=== PATIENT | female | born 1995 | race Caucasian/White ===

== ENCOUNTER 2017-10-23 19:26 | Emergency (ER) | payer OTHER ==
[~2017-10-23] VITALS: Ht 165.1 cm; Wt 56.7 kg
--- OUTSIDE RECORDS SUMMARY | 2017-10-23 19:34 | XMS REPORT ---
Author Author NIKKY SINGH Organization [facility] Address [address] [place] [address] Care Team Providers Care Condominium [employer] Manager Name Role Phone NIKKY SINGH Unavailable PROBLEMS No Known Problems ALLERGIES No Known Allergies ENCOUNTERS Encounter Location Date Diagnosis [facility] [id number] [place] [phone] August, Encounter for Depo-Provera contraception Z30.42 [facility] [address] [place] [phone] August, Cough R05 and Viral upper respiratory tract infection J06.9 [facility] [address] [place] [phone] Jun, control counseling Z30.09 and Encounter for Depo- Provera contraception Z30.42 IMMUNIZATIONS Vaccine Route Administration Date Status DEPO PROVERA (150 MG/ML) IM Intramuscular June 08, 2017 Administered SOCIAL HISTORY Never Assessed REASON FOR VISIT control consult, would like counseling on the mirena, and would like to continue her sprintec in the meantime-[facility] PLAN OF CARE Activity Details Follow Up 3 Months, prn Reason:Depo VITAL SIGNS Height 65 in 2017-06-08 Weight 126.4 lbs 2017-06-08 Temperature 99.3 degrees Fahrenheit 2017-06-08 Heart Rate 78 bpm 2017-06-08 Respiratory Rate 20 2017-06-08 BMI 21.03 kg/m2 2017-06-08 Blood pressure systolic 122 mmHg 2017-06-08 Blood pressure diastolic 62 mmHg 2017-06-08 MEDICATIONS Medication Instructions Dosage Frequency Start Date End Date Duration Status Depo-Provera 150 MG/ML Intramuscular once every 3 months 1 ml Jun, 1 dose Active Sprintec 28 0.25-35 MG-MCG Orally Once a day 1 tablet 24h Active RESULTS Name Result Date Reference Range TEST, URINE (IN HOUSE) 2017-06-08 RESULTS Negative Lot # [id number] Control + Exp date 11/01/18 PROCEDURES Procedure Date Ordered Result Body Site URINE TEST June 08, 2017 THER/PROPH/DIAG INJ, SC/IM June 08, 2017 DEPO PROVERA (150 MG/ML) June 08, 2017 INSTRUCTIONS MEDICATIONS ADMINISTERED No Known Medications
--- OUTSIDE RECORDS SUMMARY | 2017-10-23 19:35 | XMS REPORT | Clinical Summary ---
Author Author Admin, SHEA Organization [facility] Address Unknown Phone Allergies, Adverse Reactions, Alerts Allergy Name Reaction Description Start Date Severity Status Provider No Known Allergies Trena Qiu LPN Conditions or Problems Problem Name Problem Code Onset Date Status Entry Date Provider Comment Standard Description Annotate FAMILY HISTORY OF CORONARY HEART DISEASE V17.3 Active Madison Brantley MD Family history of ischemic heart disease SINUSITIS, ACUTE 461.9 Resolved Madison Brantley MD Acute sinusitis, unspecified CONCUSSION 850.9 Resolved Madison Brantley MD Concussion, unspecified WELL CHILD EXAM V20.2 Inactive Madison Brantley MD Routine infant or child health check Shellfish allergy 988.0 Active Madison Brantley MD Toxic effect of fish and shellfish eaten as food Delayed menses 626.8 Active Madison Brantley MD Other disorders of menstruation and other abnormal bleeding from female genital tract Urticaria, 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 Active Karen Faux Allergic urticaria SINUSITIS, ACUTE ICD-461.9 Inactive Madison Brantley MD CONCUSSION ICD-850.9 Inactive Madison Brantley MD WELL CHILD EXAM ICD-V20.2 Inactive Madison Brantley MD Medication List Medication Instructions Start Date Stop Date Generic Name NDC Status Provider Patient Instruction EPIPEN JR 2-BLADE 0.15 MG/0.3ML MAUREEN use as directed EPINEPHRINE 32107958093 Active Madison Brantley MD Active FLUTICASONE PROPIONATE 50 MCG/ACT SUSP 1 puff bid for 3-5 days, then daily FLUTICASONE PROPIONATE [id number] No Longer Active Madison Brantley MD Active AMOXICILLIN 500 MG CAPS 1 bid AMOXICILLIN [id number] No Longer Active Madison Brnatley MD Active AMOXICILLIN 500 MG CAPS 1 bid AMOXICILLIN 500 MG CAPS 112308 AMOXICILLIN Inactive FLUTICASONE PROPIONATE 50 MCG/ACT SUSP 1 puff bid for 3-5 days, then daily FLUTICASONE PROPIONATE 50 MCG/ACT SUSP 803815 FLUTICASONE PROPIONATE Inactive Immunizations Vaccine Administration Date Value Standard Description Hepatitis A vaccine, ped/adol, 2 dose (Havrix 2 dose ped/adol, Vaqta ped/adol) , #2 Vaqta (2 dose - Ped/Adol) [CVX83] hepatitis A vaccine, pediatric/adolescent dosage, 2 dose schedule Combined Nypqnxfxdy-Wshwbyd-phbpvpepl Pertussis (dTpa) Vaccine - Booster 10/12 Boostrix [[id number]] tetanus toxoid, reduced diphtheria toxoid, and acellular pertussis vaccine, adsorbed chicken pox immunization #2 Varicella Vax varicella virus vaccine MPSV4 (meningococcal polysaccharide vaccination) Menactra meningococcal polysaccharide vaccine (MPSV4) hepatitis A immunization #1 Historical hepatitis A vaccine, unspecified formulation dT (Diphtheria and Tetanus) booster TD Td(adult) unspecified formulation DPT immunization #5 DTaP polio vaccine #4 IPV poliovirus vaccine, inactivated MMR virus immunization #2 MMR DPT immunization #4 DTaP Hemophilus influenza B immunization #4 Historical Haemophilus influenzae type b vaccine, conjugate unspecified formulation polio vaccine #1 IPV poliovirus vaccine, inactivated polio vaccine #2 OPV poliovirus vaccine, inactivated MMR virus immunization #1 MMR chicken pox immunization #1 Varicella Vax varicella virus vaccine hepatitis B vaccine #3 Historical hepatitis B vaccine, unspecified formulation DPT immunization #3 DTaP Hemophilus influenza B immunization #3 Historical Haemophilus influenzae type b vaccine, conjugate unspecified formulation DPT immunization #2 DTaP Hemophilus influenza B immunization #2 Historical Haemophilus influenzae type b vaccine, conjugate unspecified formulation polio vaccine #3 IPV poliovirus vaccine, inactivated hepatitis B vaccine #2 Historical hepatitis B vaccine, unspecified formulation DPT immunization #1 DTaP Hemophilus influenza B immunization #1 Historical Haemophilus influenzae type b vaccine, conjugate unspecified formulation hepatitis B vaccine #1 Historical hepatitis B vaccine, unspecified formulation Vital Signs Date Name Value Unit Range Description blood pressure, diastolic 70 mm[Hg] BP lopez blood pressure, systolic 110 mm[Hg] BP sys height E&M 63.5 [in_us] Bdy height temperature E&M 98.3 [degF] Body temperature weight E&M 107 [lb_av] Weight Measured Encounters Code Encounter Date Provider Facility CPT-04653 Level 3 Est. 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 Patient 18:49:45 CDT Adalberto Asher MD [facility] CPT-47023 Level 3 Est. Patient 09:17:20 CDT Madison Brantley MD [facility] Procedures Code Procedure Name Date Entry Date Standard Description CPT-01031 Venipuncture Draw Fee 15:03:03 CDT CPT-71372 Administration single or combination vaccine inc oral 11 :15:48 SENIOR SHAREPOINT ARCHITECT CPT-62322 Hepatitis A ped/adol 2 dose schedule 11:15:48 SENIOR SHAREPOINT ARCHITECT 2013/ 03/04 CPT-000 Give Immunizations Due 09:41:40 SENIOR SHAREPOINT ARCHITECT CPT-PV Prev. Care Visit 09:41:40 SENIOR SHAREPOINT ARCHITECT
--- OUTSIDE RECORDS SUMMARY | 2017-10-23 19:35 | XMS REPORT | Clinical Summary ---
Author Author Admin, SHEA Organization [facility] Address Unknown Phone Allergies, Adverse Reactions, Alerts [...] 0.15 MG/0.3ML MAUREEN use as directed EPINEPHRINE 32152881338 Active Madison Brantley MD Active FLUTICASONE PROPIONATE 50 MCG/ACT SUSP 1 puff bid for 3-5 days, then daily FLUTICASONE PROPIONATE 73830826043 No Longer Active Madison Brantley MD Active AMOXICILLIN 500 MG CAPS 1 bid AMOXICILLIN 56024913469 No Longer Active Madison Brantley MD Active AMOXICILLIN 500 MG CAPS 1 bid AMOXICILLIN 500 MG CAPS 844664 AMOXICILLIN Inactive FLUTICASONE PROPIONATE 50 MCG/ACT SUSP 1 puff bid for 3-5 days, then daily FLUTICASONE PROPIONATE 50 MCG/ACT SUSP 177356 FLUTICASONE PROPIONATE Inactive Immunizations Vaccine Administration Date Value Standard Description Hepatitis A vaccine, ped/adol, 2 dose (Havrix 2 dose ped/adol, Vaqta ped/adol) , #2 Vaqta (2 dose - Ped/Adol) [CVX83] hepatitis A vaccine, pediatric/adolescent dosage, 2 dose schedule Combined Puuakksjuh-Enkspsu-ywonfgynm Pertussis (dTpa) Vaccine - Booster 10/12 Boostrix [[id number]] tetanus toxoid, reduced diphtheria toxoid, and acellular [...] Measured Encounters Code Encounter Date Provider Facility CPT-94303 Level 3 Est. 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 CPT-85749 Level 3 Est. Patient 18:49:45 CDT Adalberto Asher MD [facility] CPT-26947 Level 3 Est. Patient 09:17:20 CDT Madison Brantley MD [facility] Procedures Code Procedure Name Date Entry Date Standard Description CPT-59508 Venipuncture Draw Fee 15:03:03 CDT CPT-42386 Administration single or combination vaccine inc oral 11 :15:48 TONGUE AND GROOVE MACHINE SETTER CPT-55964 Hepatitis A ped/adol 2 dose schedule 11:15:48 TONGUE AND GROOVE MACHINE SETTER 2013/ 03/04 CPT-000 Give Immunizations Due 09:41:40 TONGUE AND GROOVE MACHINE SETTER CPT-PV Prev. Care Visit 09:41:40 TONGUE AND GROOVE MACHINE SETTER
--- OUTSIDE RECORDS SUMMARY | 2017-10-23 19:35 | XMS REPORT | Clinical Summary ---
Author Author Admin, SHEA Organization [facility] Address Unknown Phone Allergies, Adverse Reactions, Alerts [...] MD Acute sinusitis, unspecified CONCUSSION 850.9 Resolved aMdison Brantley MD Concussion, unspecified WELL CHILD EXAM [...] 0.15 MG/0.3ML MAUREEN use as directed EPINEPHRINE 50119145312 Active Madison Brantley MD Active FLUTICASONE PROPIONATE 50 MCG/ACT SUSP 1 puff bid for 3-5 days, then daily FLUTICASONE PROPIONATE 72201247328 No Longer Active Madison Brantley MD Active AMOXICILLIN 500 MG CAPS 1 bid AMOXICILLIN 98892161335 No Longer Active Madison Brantley MD Active AMOXICILLIN 500 MG CAPS 1 bid AMOXICILLIN 500 MG CAPS 479032 AMOXICILLIN Inactive FLUTICASONE PROPIONATE 50 MCG/ACT SUSP 1 puff bid for 3-5 days, then daily FLUTICASONE PROPIONATE 50 MCG/ACT SUSP 623888 FLUTICASONE PROPIONATE Inactive Immunizations Vaccine Administration Date Value Standard Description Hepatitis A vaccine, ped/adol, 2 dose (Havrix 2 dose ped/adol, Vaqta ped/adol) , #2 Vaqta (2 dose - Ped/Adol) [CVX83] hepatitis A vaccine, pediatric/adolescent dosage, 2 dose schedule Combined Zvpxwdtkij-Nancylu-eltlxnaza Pertussis (dTpa) Vaccine - Booster 10/12 Boostrix [[id number]] tetanus toxoid, reduced diphtheria toxoid, and acellular [...] immunization #1 Varicella Vax varicella virus vaccine DPT immunization #3 DTaP Hemophilus influenza B immunization #3 Historical Haemophilus influenzae type b vaccine, conjugate unspecified formulation hepatitis B vaccine #3 Historical hepatitis B vaccine, unspecified formulation Hemophilus influenza B immunization #2 Historical Haemophilus influenzae type b vaccine, conjugate unspecified formulation polio vaccine #3 IPV poliovirus vaccine, inactivated DPT immunization #2 DTaP Hemophilus influenza B immunization #1 Historical Haemophilus influenzae type b vaccine, conjugate unspecified formulation DPT immunization #1 DTaP hepatitis B vaccine #2 Historical hepatitis B vaccine, unspecified formulation hepatitis B vaccine #1 Historical hepatitis B vaccine, unspecified formulation Vital Signs Date Name Value Unit Range Description blood pressure, diastolic 70 mm[Hg] BP lopez blood pressure, systolic 110 mm[Hg] BP sys height E&M 63.5 [in_us] Bdy height temperature E&M 98.3 [degF] Body temperature weight E&M 107 [lb_av] Weight Measured Encounters Code Encounter Date Provider Facility CPT-52598 Level 3 Est. 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 Patient 18:49:45 CDT Adalberto Asher MD [facility] CPT-14028 Level 3 Est. Patient 09:17:20 CDT Madison Brantley MD [facility] Procedures Code Procedure Name Date Entry Date Standard Description CPT-31972 Venipuncture Draw Fee 15:03:03 CDT CPT-67392 Administration single or combination vaccine inc oral 11 :15:48 SURFACE GRINDER TENDER CPT-31816 Hepatitis A ped/adol 2 dose schedule 11:15:48 SURFACE GRINDER TENDER 2013/ 03/04 CPT-000 Give Immunizations Due 09:41:40 SURFACE GRINDER TENDER CPT-PV Prev. Care Visit 09:41:40 SURFACE GRINDER TENDER
[2017-10-23] MEDS ORDERED: METH80VI IJ (20:46)
--- NOTE | 2017-10-23 21:06 | Diagnostic Imaging Report ---
INDICATION: Fall, left hip pain COMPARISON: None FINDINGS: Single view of the pelvis and two views of the left hip demonstrate no fracture or dislocation. Articular surfaces are normal. No osseous lesion. IMPRESSION: Negative pelvis and left hip. Dictated by: Dictated on workstation # [id number]
--- NOTE | 2017-10-23 21:15 | ED Back Pain ---
General Chief Complaint: Back Problems Stated Complaint: BACK PAIN,LADDER DROPPED ON BACK AT WORK Nursing Triage Note: Patient reports was working and a ladder fell and hit her in the back. patient denies other injury or hitting head. Nursing Sepsis Screen: No Definite Risk History of Present Illness Date Seen by Provider: Oct 23, 2017 Time Seen by Provider: 20:45 Initial Comments Patient is a 22-year-old female who reports while at work tonight a ladder fell hitting her in the top left hip at 1800. There is a small abrasion to the skin over the left hip area 1cm by 2cm. She denies taking anything for pain nor need for pain medication at this time. Location: Other (left hip) Timing/Duration: 4-6 Hours Severity: Mild Pain/Injury Location: Pelvis (left hip) Radiation: Other (no radiation) Modifying Factors: Improves With Movement Associated Symptoms: denies symptoms Allergies and Home Medications Patient Home Medication List Home Medication List Reviewed: Yes Constitutional: see HPI; No chills, No diaphoresis Musculoskeletal: see HPI, joint pain (left hip/pelvic pain) Skin: see HPI, other (abrasion to the left hip.) All Other Systems Reviewed Negative Unless Noted: Yes Past Fdcjrie-Aljhad-Hgtzrm Hx Past Med/Social Hx: Reviewed Nursing Past Med/Soc Hx Patient Social History Alcohol Use: Denies Use Recreational Drug Use: No Smoking Status: Never a Smoker Recent Foreign Travel: No Contact w/Someone Who Travel: No Recent Infectious Disease Expo: No Recent Hopitalizations: No Past Medical History Surgeries: No Respiratory: No Cardiac: No Neurological: No Genitourinary: No Gastrointestinal: No Musculoskeletal: No Endocrine: No HEENT: No Cancer: No Psychosocial: No Integumentary: No Blood Disorders: No Family Medical History Reviewed Nursing Family Hx Physical Exam Vital Signs Vital Signs - First Documented 10/23/17 20:29 Temp 99.8 Pulse 89 Resp 12 B/P (MAP) 133/79 (97) Pulse Ox 100 Capillary Refill : Less Than 3 Seconds Height, Weight, BMI Height: 5'5.00" Weight: 125lbs. oz. 56.695939ie; BMI Method:Stated General Appearance: No Apparent Distress, WD/WN Cardiovascular: Regular Rate, Rhythm, No Edema, No Gallop, No JVD, No Murmur, Normal Peripheral Pulses Respiratory: Chest Non Tender, Lungs Clear, Normal Breath Sounds, No Accessory Muscle Use, No Respiratory Distress Back: Normal Inspection, No CVA Tenderness, No Vertebral Tenderness, Other ( patient is tender to the left hip and pelvis area.) Skin: Normal Color, Warm/Dry, Other (there is an abrasion to the left hip at the level of the iliac crest. It appears that the ladder hit at this area. No ecchymosis at this time.) Progress/Results/Core Measures Results/Orders My Orders Orders - ANDRES RAMOS Pelvis With Left Hip 2-3 Views (10/23/17 20:44) Vital Signs/I&O 10/23/17 10/23/17 20:29 21:38 Temp 99.8 99.8 Pulse 89 89 Resp 12 12 B/P (MAP) 133/79 (97) 133/79 (97) Pulse Ox 100 100 Blood Pressure Mean: 97 Departure Impression Primary Impression: Contusion of left hip Disposition: 01 HOME, SELF-CARE Condition: Stable/Unchanged Departure-Patient Inst. Decision time for Depature: 21:18 Referrals: NO,LOCAL PHYSICIAN (PCP/Family) Primary Care Physician Patient Instructions: Contusion (DC) Add. Discharge Instructions: You may use ibuprofen and Tylenol as needed for pain. You may use ice packs at 20 minute intervals to the sore areas. Follow-up with her doctor of your choice within 1 week for recheck. Return back to the emergency room for any increased pain, worsening symptoms, or any other concerns as needed. All discharge instructions reviewed with patient and/or family. Voiced understanding. Work/School Note: Work Release Form Date Seen in the Emergency Department: Oct 23, 2017 Return to Work: Oct 25, 2017 Restrictions: No Restrictions ANDRES RAMOS Oct 23, 2017 21:15
[2017-10-23 21:38] VITALS: BP 133/79
== END 2017-10-23 21:34 | disposition home or self-care (01) ==
LOC: ER 19:30
DX: S70.02XA Contusion of left hip, initial encounter (principal); W20.8XXA Other cause of strike by thrown, projected or falling object, initial encounter
CPT/HCPCS: 99281